=== PATIENT | male | born 1975 | race Caucasian/White ===

== ENCOUNTER 2016-10-05 23:28 | Emergency (ER) | payer OTHER ==
[~2016-10-05] VITALS: Ht 162.5 cm; Wt 77.1 kg
[~2016-10-05 23:28] MED LIST: DOXYCYCLINE40 MG PO; IBU-8800 MG PO; KEFLEX500 MG PO; MEDROL DOSEPAK4 MG PO; MOTRIN800 MG PO; PREDNISONE10 MG PO; TESSALON PERLE200 MG PO; ZITHROMAX Z PA250 MG PO
[2016-10-05] MEDS ORDERED: CLEOCIN150 MG PO (23:32)
[2016-10-05] MEDS ORDERED: PREDNISONE10 MG PO (23:42)
== END 2016-10-05 23:41 | disposition home or self-care (01) ==
LOC: ED 23:28
DX: L23.7 Allergic contact dermatitis due to plants, except food (principal)

== ENCOUNTER 2019-09-20 18:11 | Emergency (ER) | payer SELFPAY ==
[~2019-09-20] VITALS: Ht 162.5 cm; Wt 77.1 kg
[~2019-09-20 18:11] MED LIST changes: +CLEOCIN150 MG PO
[2019-09-20] MEDS ORDERED: PREDNISONE10 MG PO (18:31)
== END 2019-09-20 19:05 | disposition home or self-care (01) ==
LOC: ED 18:11
DX: L25.9 Unspecified contact dermatitis, unspecified cause (principal); Z79.899 Other long term (current) drug therapy

== ENCOUNTER → 2022-09-30 | Outpatient (CLI) | payer OTHER | END | disposition home or self-care (01) | LOC: RAD 08:19 | PROVIDERS: ATTEND Nurse Practitioner | DX: M25.531 Pain in right wrist (principal) ==